=== PATIENT | female | born 1980 | race African-American/Black ===

== ENCOUNTER 2017-02-03 14:54 | Emergency (ER) | payer OTHER, MEDICAID ==
[2017-02-03] MEDS ORDERED: IBUPROFEN 600 MG TABLET PO ONE (15:13)
[2017-02-03] MEDS ORDERED: ONDANSETRON 4 MG TAB.RAPDIS PO ONE (15:13)
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
[2017-02-03 16:34] VITALS: BP 120/72
== END 2017-02-03 16:34 | disposition home or self-care (01) ==
LOC: ER 14:54
DX: S06.0X0A Concussion without loss of consciousness, initial encounter (principal); S40.012A Contusion of left shoulder, initial encounter; W20.8XXA Other cause of strike by thrown, projected or falling object, initial encounter
CPT/HCPCS: 99284; 73030; 70450; S0119